=== PATIENT | male | born 1980 | race Caucasian/White ===

== ENCOUNTER 2020-04-20 11:43 | Emergency (ER) | payer MEDICAID, OTHER ==
[~2020-04-20] VITALS: Ht 180.3 cm; Wt 68.2 kg
[2020-04-20] MEDS ORDERED: PERM60CR19 TOP (11:47)
[2020-04-20] MEDS ORDERED: SULF1TAB49 PO (11:53)
[2020-04-20 11:54] VITALS: BP 115/86
== END 2020-04-20 12:13 | disposition home or self-care (01) ==
LOC: ER 11:44
DX: B86 Scabies (principal); L03.114 Cellulitis of left upper limb; L03.113 Cellulitis of right upper limb; R51 Headache; F15.90 Other stimulant use, unspecified, uncomplicated; Z60.2 Problems related to living alone; Z79.2 Long term (current) use of antibiotics; Z79.899 Other long term (current) drug therapy
CPT/HCPCS: 99283